=== PATIENT | female | born 1995 | race Caucasian/White ===

== ENCOUNTER 2017-10-23 11:18 | Emergency (ER) | payer SELFPAY ==
[2016-08-23 10:56] VITALS: Wt 127.0 kg
[~2017-10-23 11:18] MED LIST: ACET-1966 PO; AMOX-362 PO; FERR-53 PO; HYDR-4309 PO; IBUP800T37 PO; LOR5/325 PO; ONDA4TAB97 PO; PER PO; PREN-127 PO; PROM-110 PO
--- NOTE | 2017-10-23 11:26 | ER Report ---
History and Physical Time Seen By MD: 11:25 Hx. of Stated Complaint: pt reports cough, sore throat, chest pain for two days HPI/ROS CHIEF COMPLAINT: Chest pain HISTORY OF PRESENT ILLNESS: This is a 22-year-old female who presents to the emergency department for chest pain and cough. Patient states that about 4-5 days ago she developed a cough progressively getting worse over the course of the weekend and then over the last couple days she's had some increasing chest pain. Patient states the chest pain is exacerbated by her coughing. It's a semi- productive cough with yellow sputum in addition she's had a sore throat. Patient did state that yesterday she had some bright red flecks of blood but that has since then resolved. Patient also states she's been vomiting and has had diarrhea. Patient denies aches, chills, abdominal pain, headaches, rashes or visual changes. REVIEW OF SYSTEMS: Constitutional: No fever, no chills. Eyes: No discharge. ENT: No sore throat. Cardiovascular: As above. Respiratory: As above. Gastrointestinal: As above. Genitourinary: No hematuria. Musculoskeletal: No back pain. Skin: No rashes. Neurological: No headache. Allergies: Coded Allergies: No Known Drug Allergies (Unverified , 10/23/17) Home Meds Active Scripts Albuterol Sulfate (VENTOLIN HFA) 18 Gm Inh, 2 PUFF INH Q4-6H Y for SHORTNESS OF BREATH, #1 INH Prov:JOHAN POWERS [facility]- 10/23/17 Benzonatate (BENZONATATE) 200 Mg Capsule, 200 MG PO TID Y for COUGH, #15 CAP Prov:JOHAN POWERS [facility] 10/23/17 Amoxicillin (AMOXICILLIN) 500 Mg Capsule, 1 CAP PO Q12H for 10 Days, #20 CAPSULE 0 Refills Prov:JOHAN POWERS [facility] 10/23/17 Discontinued Reported Medications Vits W-Ca,Fe,Fa(<1MG) ( VITAMINS) 1 Each Tablet, 1 EACH PO DAILY, TAB 01/01/16 Discontinued Scripts Ferrous Sulfate (FERROUS SULFATE) 325 Mg Tablet, 325 MG PO BIDBS, #60 TAB 0 Refills Prov:MARKEL SEGAL DO 08/21/16 Oxycodone/Acetaminophen (OXYCODONE/ACETAMINOPHEN 5MG/325 MG) 5 Mg/325 Mg Tab, 1- 2 TAB PO Q4H Y for PAIN, #40 TAB 0 Refills Prov:MARKEL SEGAL DO 08/21/16 Ibuprofen (IBUPROFEN) 800 Mg Tablet, 800 MG PO Q8H@00,08,16, #20 TAB 0 Refills Prov:MARKEL SEGAL DO 08/21/16 Hydrocodone Bit/Acetaminophen (HYDROCODON-ACETAMINOPHEN 5-325) 1 Each Tablet, 1 EACH PO Q4H Y for PAIN, #12 TAB 0 Refills Prov:SAMANTA HAY MD 08/16/16 Past Medical/Surgical History Patient has a past medical and surgical history of depression, and obesity. Reviewed Nurses Notes: Yes Hx Smoking: Yes (Pt hasn't smoked for one year) Smoking Status: Former Smoker Exposure to Second Hand Smoke?: Yes (Occassionally) Hx Substance Use Disorder: No Hx Alcohol Use: Yes (occasional) Constitutional Vital Sign - Last 24 Hours 10/23/17 10/23/17 10/23/17 10/23/17 11:22 11:23 11:42 11:42 Temp 97.8 Pulse 91 80 Resp 16 16 B/P (MAP) 133/107 (116) 133/107 Pulse Ox 97 96 O2 Delivery Room Air Room Air 10/23/17 10/23/17 10/23/17 10/23/17 11:48 11:49 12:08 12:31 Pulse 96 90 76 74 Resp 32 B/P (MAP) 123/86 (98) Pulse Ox 100 98 Physical Exam General Appearance: The patient is alert, has no immediate need for airway protection and no signs of toxicity. Eyes: Pupils equal and round no pallor or injection. ENT, Mouth: Mucous membranes are moist. Erythema to the posterior orophyrnx and soft palate. Erythema and edema to the inferior turbinates with clear nasal drainage. TMs intact bilaterally, left TM pearly bergman, landmarks noted. Right TM bulging with erythema surrounding the TM and moderate amount of injection. Respiratory: There are no retractions, coarse lung sounds to the left mid lung, otherwise clear to auscultation. Cardiovascular: Regular rate and rhythm, no murmurs, clicks or rubs. Gastrointestinal: Abdomen is soft and non tender, no masses, bowel sounds normal. Neurological: Alert and oriented 4. Moving all extremities. No focal neuro deficits. Following all commands. Skin: Warm and dry, no rashes. Musculoskeletal: Neck is supple non tender. Extremities are nontender, nonswollen and have full range of motion. DIFFERENTIAL DIAGNOSIS: After history and physical exam differential diagnosis was considered for chest pain including but not limited to myocardial ischemia, pericarditis pulmonary embolus, chest wall pain, pleural inflammation and pulmonary infectious causes. Medical Decision Making Data Points Result Diagram: 10/23/17 1129 10/23/17 1129 Laboratory Hematology Test 10/23/17 11:29 Red Blood Count 5.63 M/uL (4.17-5.56) Mean Corpuscular Volume 77.0 fL (80.0-96.0) Mean Corpuscular Hemoglobin 26.1 pg (26.0-33.0) Mean Corpuscular Hemoglobin Concent 33.9 g/dL (32.0-36.0) Red Cell Distribution Width 16.9 % (11.5-14.5) Mean Platelet Volume 9.0 fL (7.2-11.1) Neutrophils (%) (Auto) 55.2 % (39.4-72.5) Lymphocytes (%) (Auto) 31.7 % (17.6-49.6) Monocytes (%) (Auto) 9.0 % (4.1-12.4) Eosinophils (%) (Auto) 3.5 % (0.4-6.7) Basophils (%) (Auto) 0.6 % (0.3-1.4) Nucleated RBC Relative Count (auto) 0.1 /100WBC Neutrophils # (Auto) 4.4 K/uL (2.0-7.4) Lymphocytes # (Auto) 2.5 K/uL (1.3-3.6) Monocytes # (Auto) 0.7 K/uL (0.3-1.0) Eosinophils # (Auto) 0.3 K/uL (0.0-0.5) Basophils # (Auto) 0.1 K/uL (0.0-0.1) Nucleated RBC Absolute Count (auto) 0.01 K/uL Sodium Level 140 mmol/L (137-145) Potassium Level 3.8 mmol/L (3.5-5.0) Chloride Level 104 mmol/L (98-107) Carbon Dioxide Level 20 mmol/L (22-31) Blood Urea Nitrogen 8 mg/dl (7-18) Creatinine 0.70 mg/dl (0.52-1.04) Glomerular Filtration Rate Calc > 60.0 Random Glucose 125 mg/dl (75-110) Calcium Level 8.9 mg/dl (8.4-10.2) Total Bilirubin 0.2 mg/dl (0.2-1.3) Aspartate Amino Transf (AST/SGOT) 30 U/L (0-35) Alanine Aminotransferase (ALT/SGPT) 26 U/L (0-56) Alkaline Phosphatase 99 U/L (0-126) Troponin I < 0.012 ng/ml Total Protein 7.3 gm/dl (6.3-8.2) Albumin 4.0 g/dl (3.5-5.0) Chemistry Test 10/23/17 11:29 White Blood Count 8.0 k/uL (4.5-11.0) Red Blood Count 5.63 M/uL (4.17-5.56) Hemoglobin 14.7 g/dL (12.0-16.0) Hematocrit 43.4 % (34.0-47.0) Mean Corpuscular Volume 77.0 fL (80.0-96.0) Mean Corpuscular Hemoglobin 26.1 pg (26.0-33.0) Mean Corpuscular Hemoglobin Concent 33.9 g/dL (32.0-36.0) Red Cell Distribution Width 16.9 % (11.5-14.5) Platelet Count 256 K/uL (150-450) Mean Platelet Volume 9.0 fL (7.2-11.1) Neutrophils (%) (Auto) 55.2 % (39.4-72.5) Lymphocytes (%) (Auto) 31.7 % (17.6-49.6) Monocytes (%) (Auto) 9.0 % (4.1-12.4) Eosinophils (%) (Auto) 3.5 % (0.4-6.7) Basophils (%) (Auto) 0.6 % (0.3-1.4) Nucleated RBC Relative Count (auto) 0.1 /100WBC Neutrophils # (Auto) 4.4 K/uL (2.0-7.4) Lymphocytes # (Auto) 2.5 K/uL (1.3-3.6) Monocytes # (Auto) 0.7 K/uL (0.3-1.0) Eosinophils # (Auto) 0.3 K/uL (0.0-0.5) Basophils # (Auto) 0.1 K/uL (0.0-0.1) Nucleated RBC Absolute Count (auto) 0.01 K/uL Glomerular Filtration Rate Calc > 60.0 Calcium Level 8.9 mg/dl (8.4-10.2) Total Bilirubin 0.2 mg/dl (0.2-1.3) Aspartate Amino Transf (AST/SGOT) 30 U/L (0-35) Alanine Aminotransferase (ALT/SGPT) 26 U/L (0-56) Alkaline Phosphatase 99 U/L (0-126) Troponin I < 0.012 ng/ml Total Protein 7.3 gm/dl (6.3-8.2) Albumin 4.0 g/dl (3.5-5.0) EKG/Imaging EKG Interpretation 12 lead EKG: time of EKG 1119. Rhythm: Normal sinus rhythm, ventricular rate 91 bpm. Olga: normal QRS: normal ST segments: No ST elevation or depression identified. Imaging Location: [facility] Patient: Marika Javed : 1995 Visit/Account:[id number] Date of [facility]: 10/23/2017 Examination: CHEST PA AND LAT Comparison: None. History: chest pain Findings: Cardiac and hilar contour size is within normal limits. No consolidation, nodule, or peribronchial inflammation. No pneumothorax, edema, or effusion. Cardiac and hilar contour size is within normal limits. Osseous structures are intact. IMPRESSION: Negative chest. Report Dictated By: Inder Alfaro MD at 10/23/2017 12:21 PM Report E-Signed By: Inder Alfaro MD at 10/23/2017 12:22 PM WSN:[id number] ED Course/Re-evaluation Clinical Indication for ER IV: IV Access ED Course The patient was admitted to room. A history and physical were obtained. Differential diagnoses were considered. An IV was started. A CBC, CMP, troponin were obtained. Lab studies unremarkable. Negative troponin. EKG unremarkable. Two-view chest x-ray negative for any acute cardiopulmonary process. Patient did have a right otitis media which she will be treated for. Patient did state that after the DuoNeb her coughing improved. Patient was also given 1 g of Tylenol and 15 mg IV Toradol. Patient states that she is feeling much better and is ready to go home. I did review these results with the patient. A Ventolin inhaler, Ventolin Apatate and amoxicillin prescription for worsening of the patient's pharmacy. Patient was encouraged to follow up with her primary care provider for persistent coughing. Patient was also encouraged her to the ED for any other concerns worsening symptoms. Patient was in agreement with this plan of care. Decision to Disposition Date: Oct 23, 2017 Decision to Disposition Time: 12:29 Depart Departure Latest Vital Signs Vital Signs Date Time Temp Pulse Resp B/P (MAP) Pulse Ox O2 Delivery O2 Flow Rate FiO2 10/23/17 12:31 74 123/86 (98) 98 10/23/17 11:48 32 10/23/17 11:42 Room Air 10/23/17 11:23 97.8 Impression: Primary Impression: Right otitis media Additional Impression: Cough Condition: Improved Disposition: HOME OR SELF-CARE Referrals: GHANSHYAM PABLO MD (PCP) New Scripts Albuterol Sulfate (VENTOLIN HFA) 18 Gm Inh 2 PUFF INH Q4-6H Y for SHORTNESS OF BREATH, #1 INH Prov: JOHAN POWERS [facility] 10/23/17 Benzonatate (BENZONATATE) 200 Mg Capsule 200 MG PO TID Y for COUGH, #15 CAP Prov: JOHAN POWERS [facility] 10/23/17 Amoxicillin (AMOXICILLIN) 500 Mg Capsule 1 CAP PO Q12H for 10 Days, #20 CAPSULE 0 Refills Prov: JOHAN POWERS [facility] 10/23/17 Patient Instructions: Acute Cough (ED), Otitis Media (ED) Additional Instructions: Drink plenty of fluids. Get plenty of rest. Continue with current medications. Take the antibiotics as prescribed for your ear infection. Follow up with your primary care provider as needed or for any other concerns. Return to the ED for any other concerns or worsening symptoms. Problem Qualifiers Primary Impression: Right otitis media Otitis media type: other nonsuppurative Chronicity: acute Recurrence: not specified as recurrent Qualified Codes: H65.191 - Other acute nonsuppurative otitis media, right ear JOHAN POWERS- Oct 23, 2017 11:26
[2017-10-23] MEDS ORDERED: ALBUTEROL/IPRATROPIUM 3 ML NEB NEB ONE (11:35)
[2017-10-23] MEDS ORDERED: ONDANSETRON 4 MG/2 ML VIAL IVP ONE (11:35)
[2017-10-23] MEDS ORDERED: ACETAMINOPHEN 500 MG TAB PO ONE (11:35)
[2017-10-23 11:44] LABS: PLATELET COUNT, AUTOMATED 256 K/uL (150-450)
[2017-10-23] MEDS ORDERED: AMOX-362 PO (11:55)
--- NOTE | 2017-10-23 11:55 | EKG ---
FACILITY: [facility] - [place] PATIENT NAME: CLAUDE NICK : [id number] MR: [id number] V: [id number] EXAM DATE: ORDERING PHYSICIAN: JOHAN POWERS TECHNOLOGIST: LIZBETH Mi Reason : CP Blood Pressure : / mmHG Vent. Rate : 091 BPM Atrial Rate : 091 BPM P-R Int : 126 ms QRS Dur : 072 ms QT Int : 360 ms P-R-T Axes : 031 048 026 degrees QTc Int : 442 ms Sinus rhythm Nonspecific ST findings No previous ECGs available Confirmed by GILBERTO QUIROZ ([id number]) on 10/23/2017 5:27:41 PM Referred By: CEE Confirmed By:GILBERTO QUIROZ
[2017-10-23] MEDS ORDERED: BENZ200C15 PO (12:17)
[2017-10-23] MEDS ORDERED: ALB18R INH (12:17)
[2017-10-23] MEDS ORDERED: KETOROLAC 15 MG/ML VIAL IVP ONE (12:20)
--- NOTE | 2017-10-23 12:27 | RADIOLOGY IMAGING REPORT ---
FACILITY: [facility] - [place] PATIENT NAME: Marika Javed : 1995 MR: [id number] V: [id number] EXAM DATE: ORDERING PHYSICIAN: JOHAN POWERS TECHNOLOGIST: Location: [facility] Patient: Marika Javed : 1995 Visit/Account:[id number] Date of [place]: 10/23/2017 Examination: CHEST PA AND LAT Comparison: None. History: chest pain Findings: Cardiac and hilar contour size is within normal limits. No consolidation, nodule, or peribr onchial inflammation. No pneumothorax, edema, or effusion. Cardiac and hilar contour size is within n ormal limits. Osseous structures are intact. IMPRESSION: Negative chest. Report Dictated By: Inder Alfaro MD at 10/23/2017 12:21 PM Report E-Signed By: Inder Alfaro MD at 10/23/2017 12:22 PM WSN:[id number]
[2017-10-23 12:31] VITALS: BP 123/86
== END 2017-10-23 12:33 | disposition home or self-care (01) ==
LOC: ER 11:22
DX: H65.191 Other acute nonsuppurative otitis media, right ear (principal); R05 Cough
CPT/HCPCS: 71046; 84484; 85025; 93005; 94640; 96374; 96375; 99284; J1885; J2405; J7620; 82040; 82247; 82310; 82374; 82435; 82565; 82947; 84075; 84132; 84155; 84295; 84450; 84460; 84520

== ENCOUNTER 2017-11-29 10:11 | Emergency (ER) | payer SELFPAY ==
[2016-08-23 10:56] VITALS: Wt 117.9 kg
[~2017-11-29 10:11] MED LIST changes: +ALB18R INH; +BENZ200C15 PO
--- NOTE | 2017-11-29 10:39 | ER Report ---
History and Physical Time Seen By MD: 10:39 Hx. of Stated Complaint: PATIENT HAS ALLERGY TO MOLD AND WAS CLEANING THIS WEEKEND AND BELIEVES SHE HAD AN ALLERGIC REACTION TO THAT, HAS NOTICED THAT SINCE HER THROAT IS SWOLLEN AND SHE IS VERY CONGESTED. STATES SHE FEELS LIKE HER "UVULA IS ON HER TOUNGE" HPI/ROS Was exposed to mold this past weekend in her hotel room. Now with discomfort and "fullness" in throat. Feels like her uvula is enlarged. No dysphagia. No fever/chills. Nomal voice. Taking PO. No other complaints Remainder of the 14 system rev: Yes Allergies: Coded Allergies: No Known Drug Allergies (Unverified , 11/29/17) Home Meds Discontinued Scripts Albuterol Sulfate (VENTOLIN HFA) 18 Gm Inh, 2 PUFF INH Q4-6H Y for SHORTNESS OF BREATH, #1 INH Prov:JOHAN POWERS [facility]- 10/23/17 Benzonatate (BENZONATATE) 200 Mg Capsule, 200 MG PO TID Y for COUGH, #15 CAP Prov:JOHAN POWERS [facility] 10/23/17 Amoxicillin (AMOXICILLIN) 500 Mg Capsule, 1 CAP PO Q12H for 10 Days, #20 CAPSULE 0 Refills Prov:JOHAN POWERS [facility]- 10/23/17 Reviewed Nurses Notes: Yes Old Medical Records Reviewed: Yes Hx Smoking: Yes (Pt hasn't smoked for one year) Smoking Status: Former Smoker Exposure to Second Hand Smoke?: Yes (Occassionally) Hx Substance Use Disorder: No Hx Alcohol Use: Yes (occasional) Constitutional Vital Sign - Last 24 Hours 11/29/17 10:16 Temp 96.6 Pulse 94 Resp 16 B/P (MAP) 145/102 Pulse Ox 95 Physical Exam General Appearance: The patient is alert, has no immediate need for airway protection and no current signs of toxicity. Eyes: Pupils equal and round no injection. o/p no exudate, no swelling, Uvula midline, no pain with tracheal rock, normal voice Respiratory: Chest is non tender, lungs are clear to auscultation. Cardiac: regular rate and rhythm Gastrointestinal: Abdomen is soft and non tender, no masses, bowel sounds normal. Musculoskeletal: Neck: Neck is supple and non tender. Extremities have full range of motion and are non tender. Skin: No rashes or lesions. DIFFERENTIAL DIAGNOSIS: After history and physical exam differential diagnosis was considered for RPA, COATINGS INSPECTOR, allergic reaction, infection, mass Medical Decision Making ED Course/Re-evaluation ED Course Patient presents with fullness in her uvula after being exposed to mold the weekend. No shortness of breath no dysphasia. No changes in voice. No fever or chills. She was given Decadron for some mild fullness in her uvula. She was also given ibuprofen for some mild discomfort. No evidence of infection. She is able to take by mouth. She will follow-up with her primary care Decision to Disposition Date: November 29, 2017 Decision to Disposition Time: 11:36 Depart Departure Latest Vital Signs Vital Signs Date Time Temp Pulse Resp B/P (MAP) Pulse Ox O2 Delivery O2 Flow Rate FiO2 11/29/17 10:16 96.6 94 16 145/102 95 Impression: Primary Impression: Uvulitis Condition: Improved Disposition: HOME OR SELF-CARE Referrals: GHANSHYAM PABLO MD (PCP) New Scripts No Active Prescriptions or Reported Meds Patient Instructions: Uvulitis (ED) LORNA PRINCE MD November 29, 2017 10:39
[2017-11-29] MEDS ORDERED: IBUPROFEN 600 MG TAB PO ONE (10:50)
[2017-11-29] MEDS ORDERED: DEXAMETHASONE 1 MG TAB PO ONE (10:50)
[2017-11-29] MEDS ORDERED: DEXAMETHASONE PO ONE (11:20)
[2017-11-29 11:49] VITALS: BP 108/88
== END 2017-11-29 11:49 | disposition home or self-care (01) ==
LOC: ER 10:12
DX: K12.2 Cellulitis and abscess of mouth (principal)
CPT/HCPCS: 99283; J8540

== ENCOUNTER 2018-09-25 10:09 | Emergency (ER) | payer SELFPAY ==
[2016-08-23 10:56] VITALS: Wt 126.1 kg
[~2018-09-25 10:09] MED LIST changes: -HYDR-4309 PO; +HYDR-653 PO
[2018-09-25] MEDS ORDERED: DAYQUIL (10:24)
--- NOTE | 2018-09-25 10:35 | ER Report ---
History and Physical Time Seen By MD: 10:20 Hx. of Stated Complaint: MID CHEST PAIN AND DIFFICULTY BREATHING X2 DAYS, UNABLE TO EAT DUE TO VOMITING FROM COUGHING HARD, MUCUS DISCHARGE AND BLOODY DISCHARGE FROM NOSE. PAIN WORSE WITH DEEP BREATHING AND RADIATING TO R UPPER SIDE HPI/ROS CHIEF COMPLAINT: Cough shortness of breath HISTORY OF PRESENT ILLNESS: 23-year-old otherwise healthy obese female comes in the emergency department today with a complaint of several days of shortness of breath productive cough of dark greenish sputum as chest pain associated promote the cough worsened she lays flat no orthopnea no PND no exertional dyspnea patient has no history of respiratory issues she is an occasional smoker. P atient denies any recent travel falls or trauma has no history of DVTs or blood clots. Patient has no abdominal pain nausea vomiting diarrhea fever chills or additional complaints noted REVIEW OF SYSTEMS: Respiratory: Cough shortness of breath Cardiovascular: Chest pain no palpitations Gastrointestinal: No vomiting, no abdominal pain. Musculoskeletal: No back pain. Remainder of the 14 system rev: Yes Allergies: Coded Allergies: No Known Drug Allergies (Unverified , 11/29/17) Home Meds Reported Medications [Dayquil] No Conflict Check 09/25/18 Reviewed Nurses Notes: Yes Old Medical Records Reviewed: Yes Hx Smoking: Yes (Pt hasn't smoked for one year) Smoking Status: Former Smoker Exposure to Second Hand Smoke?: Yes (Occassionally) Hx Substance Use Disorder: No Hx Alcohol Use: Yes (occasional) Constitutional Vital Sign - Last 24 Hours 09/25/18 10:15 Temp 98.4 Pulse 120 Resp 22 B/P (MAP) 128/92 Pulse Ox 93 O2 Delivery Room Air Physical Exam General Appearance: [The patient is alert, has no immediate need for airway protection and no current signs of toxicity.] [ ] Eyes: Pupils equal and round no injection. Respiratory: Chest is non tender, lungs are clear to auscultation. Cardiac: regular rate and rhythm [ ] Gastrointestinal: Abdomen is soft and non tender, no masses, bowel sounds normal. Musculoskeletal: Neck: Neck is supple and non tender. Extremities have full range of motion and are non tender. Skin: No rashes or lesions. [ ] DIFFERENTIAL DIAGNOSIS: After history and physical exam differential diagnosis was considered for pneumonia bronchitis influenza blood clot Medical Decision Making Data Points Result Diagram: 09/25/18 1034 09/25/18 1034 Laboratory Hematology Test 09/25/18 10:34 09/25/18 11:16 Red Blood Count 5.48 M/uL (4.17-5.56) Mean Corpuscular Volume 82.3 fL (80.0-96.0) Mean Corpuscular Hemoglobin 27.6 pg (26.0-33.0) Mean Corpuscular Hemoglobin Concent 33.5 g/dL (32.0-36.0) Red Cell Distribution Width 14.7 % (11.5-14.5) Mean Platelet Volume 8.8 fL (7.2-11.1) Neutrophils (%) (Auto) 81.4 % (39.4-72.5) Lymphocytes (%) (Auto) 11.9 % (17.6-49.6) Monocytes (%) (Auto) 6.0 % (4.1-12.4) Eosinophils (%) (Auto) 0.4 % (0.4-6.7) Basophils (%) (Auto) 0.3 % (0.3-1.4) Nucleated RBC Relative Count (auto) 0.0 /100WBC Neutrophils # (Auto) 13.2 K/uL (2.0-7.4) Lymphocytes # (Auto) 1.9 K/uL (1.3-3.6) Monocytes # (Auto) 1.0 K/uL (0.3-1.0) Eosinophils # (Auto) 0.1 K/uL (0.0-0.5) Basophils # (Auto) 0.0 K/uL (0.0-0.1) Nucleated RBC Absolute Count (auto) 0.00 K/uL D-Dimer Quantitative (PE/DVT) 0.32 ug/ml (0-0.50) Urine HCG, Qualitative Negative (NEGATIVE) Sodium Level 138 mmol/L (137-145) Potassium Level 3.7 mmol/L (3.5-5.0) Chloride Level 105 mmol/L (98-107) Carbon Dioxide Level 23 mmol/L (22-31) Blood Urea Nitrogen 8 mg/dl (7-18) Creatinine 0.80 mg/dl (0.52-1.04) Glomerular Filtration Rate Calc > 60.0 Random Glucose 118 mg/dl (75-110) Calcium Level 9.0 mg/dl (8.4-10.2) Total Bilirubin 0.8 mg/dl (0.2-1.3) Aspartate Amino Transf (AST/SGOT) 19 U/L (0-35) Alanine Aminotransferase (ALT/SGPT) 21 U/L (0-56) Alkaline Phosphatase 94 U/L (0-126) Troponin I < 0.012 ng/ml B-Type Natriuretic Peptide 5 pg/ml (0-100) Total Protein 7.7 g/dl (6.3-8.2) Albumin 4.4 g/dl (3.5-5.0) Influenza Virus Type A (PCR) Negative (NEGATIVE) Influenza Virus Type B (PCR) Negative (NEGATIVE) Urine Color Yellow Urine Clarity Slightly-cloudy Urine pH 5.0 pH (4.8-9.5) Urine Specific Lyons 1.026 Urine Protein Negative mg/dL (NEGATIVE) Urine Glucose (UA) Negative mg/dL (NEGATIVE) Urine Ketones Negative mg/dL (NEGATIVE) Urine Blood Negative (NEGATIVE) Urine Nitrite Negative (NEGATIVE) Urine Bilirubin Negative (NEGATIVE) Urine Urobilinogen 4.0 mg/dL (0.2-1.9) Urine Leukocyte Esterase Negative (NEGATIVE) Urine RBC None /HPF (0-2/HPF) Urine WBC 8 /HPF (0-5/HPF) Urine Squamous Epithelial Cells Many /LPF (</=FEW) Urine Bacteria Few /HPF (NONE-FEW) Urine Mucus Few /HPF (NONE-FEW) Chemistry Test 09/25/18 10:34 09/25/18 11:16 White Blood Count 16.3 k/uL (4.5-11.0) Red Blood Count 5.48 M/uL (4.17-5.56) Hemoglobin 15.1 g/dL (12.0-16.0) Hematocrit 45.1 % (34.0-47.0) Mean Corpuscular Volume 82.3 fL (80.0-96.0) Mean Corpuscular Hemoglobin 27.6 pg (26.0-33.0) Mean Corpuscular Hemoglobin Concent 33.5 g/dL (32.0-36.0) Red Cell Distribution Width 14.7 % (11.5-14.5) Platelet Count 281 K/uL (150-450) Mean Platelet Volume 8.8 fL (7.2-11.1) Neutrophils (%) (Auto) 81.4 % (39.4-72.5) Lymphocytes (%) (Auto) 11.9 % (17.6-49.6) Monocytes (%) (Auto) 6.0 % (4.1-12.4) Eosinophils (%) (Auto) 0.4 % (0.4-6.7) Basophils (%) (Auto) 0.3 % (0.3-1.4) Nucleated RBC Relative Count (auto) 0.0 /100WBC Neutrophils # (Auto) 13.2 K/uL (2.0-7.4) Lymphocytes # (Auto) 1.9 K/uL (1.3-3.6) Monocytes # (Auto) 1.0 K/uL (0.3-1.0) Eosinophils # (Auto) 0.1 K/uL (0.0-0.5) Basophils # (Auto) 0.0 K/uL (0.0-0.1) Nucleated RBC Absolute Count (auto) 0.00 K/uL D-Dimer Quantitative (PE/DVT) 0.32 ug/ml (0-0.50) Urine HCG, Qualitative Negative (NEGATIVE) Glomerular Filtration Rate Calc > 60.0 Calcium Level 9.0 mg/dl (8.4-10.2) Total Bilirubin 0.8 mg/dl (0.2-1.3) Aspartate Amino Transf (AST/SGOT) 19 U/L (0-35) Alanine Aminotransferase (ALT/SGPT) 21 U/L (0-56) Alkaline Phosphatase 94 U/L (0-126) Troponin I < 0.012 ng/ml B-Type Natriuretic Peptide 5 pg/ml (0-100) Total Protein 7.7 g/dl (6.3-8.2) Albumin 4.4 g/dl (3.5-5.0) Influenza Virus Type A (PCR) Negative (NEGATIVE) Influenza Virus Type B (PCR) Negative (NEGATIVE) Urine Color Yellow Urine Clarity Slightly-cloudy Urine pH 5.0 pH (4.8-9.5) Urine Specific Lyons 1.026 Urine Protein Negative mg/dL (NEGATIVE) Urine Glucose (UA) Negative mg/dL (NEGATIVE) Urine Ketones Negative mg/dL (NEGATIVE) Urine Blood Negative (NEGATIVE) Urine Nitrite Negative (NEGATIVE) Urine Bilirubin Negative (NEGATIVE) Urine Urobilinogen 4.0 mg/dL (0.2-1.9) Urine Leukocyte Esterase Negative (NEGATIVE) Urine RBC None /HPF (0-2/HPF) Urine WBC 8 /HPF (0-5/HPF) Urine Squamous Epithelial Cells Many /LPF (</=FEW) Urine Bacteria Few /HPF (NONE-FEW) Urine Mucus Few /HPF (NONE-FEW) Coagulation Test 09/25/18 10:34 D-Dimer Quantitative (PE/DVT) 0.32 ug/ml Urinalysis Test 09/25/18 10:34 09/25/18 11:16 Urine HCG, Qualitative Negative (NEGATIVE) Urine Color Yellow Urine Clarity Slightly-cloudy Urine pH 5.0 pH (4.8-9.5) Urine Specific Lyons 1.026 Urine Protein Negative mg/dL (NEGATIVE) Urine Glucose (UA) Negative mg/dL (NEGATIVE) Urine Ketones Negative mg/dL (NEGATIVE) Urine Blood Negative (NEGATIVE) Urine Nitrite Negative (NEGATIVE) Urine Bilirubin Negative (NEGATIVE) Urine Urobilinogen 4.0 mg/dL (0.2-1.9) Urine Leukocyte Esterase Negative (NEGATIVE) Urine RBC None /HPF (0-2/HPF) Urine WBC 8 /HPF (0-5/HPF) Urine Squamous Epithelial Cells Many /LPF (</=FEW) Urine Bacteria Few /HPF (NONE-FEW) Urine Mucus Few /HPF (NONE-FEW) ED Course/Re-evaluation ED Course 23-year-old female shortness of breath with a productive cough x-ray shows no obvious infection infiltration pneumonia or bronchitis blood work does show an elevated white count of 16 but no focal infiltrate this is most likely viral etiology influence is negative we'll diagnose viral upper respiratory treat the symptoms Decision to Disposition Date: Sep 25, 2018 Decision to Disposition Time: 11:36 Depart Departure Latest Vital Signs Vital Signs Date Time Temp Pulse Resp B/P (MAP) Pulse Ox O2 Delivery O2 Flow Rate FiO2 09/25/18 10:15 98.4 120 22 128/92 93 Room Air Core Temperature (Celsius): 35.89 Impression: Primary Impression: Viral upper respiratory illness Condition: Condition Unchanged Disposition: HOME OR SELF-CARE Referrals: JOSE MUSE APRN [facility] 5 Days Patient Instructions: Upper Respiratory Infection (DC) NICKY MITCHELL MD Sep 25, 2018 10:35
--- NOTE | 2018-09-25 10:37 | EKG ---
FACILITY: [facility] - [place], [place] PATIENT NAME: CLAUDE NICK : [id number] MR: [id number] V: [id number] EXAM DATE: ORDERING PHYSICIAN: NICKY MITCEHLL TECHNOLOGIST: Test Reason : SOB Blood Pressure : / mmHG Vent. Rate : 106 BPM Atrial Rate : 106 BPM P-R Int : 130 ms QRS Dur : 070 ms QT Int : 344 ms P-R-T Axes : 032 045 024 degrees QTc Int : 456 ms Sinus tachycardia Otherwise normal ECG When compared with ECG of 23-OCT-2017 11:19, Previous ECG has undetermined rhythm, needs review Confirmed by GHANSHYAM ESCALONA ([id number]) on 09/25/2018 12:48:46 PM Referred By: Confirmed By:GHANSHYAM ESCALONA
[2018-09-25 10:48] LABS: PLATELET COUNT, AUTOMATED 281 K/uL (150-450)
--- NOTE | 2018-09-25 10:59 | RADIOLOGY IMAGING REPORT ---
FACILITY: [facility] - [place] PATIENT NAME: Marika Javed : 1995 MR: [id number] V: [id number] EXAM DATE: ORDERING PHYSICIAN: NICKY MITCHELL TECHNOLOGIST: [place] [facility] [place] Javed : 1995 Visit/Account:[id number] Date of Sevice: 09/25/2018 Technique: CHEST PA LAT HISTORY: Shortness of breath, tobacco usage COMPARISON: Chest radiograph 2017 Findings: The lungs are clear. No pleural effusion or pneumothorax. The cardiomediastinal silhouett e is normal. Impression: 1. No acute cardiopulmonary process. Report Dictated By: Tj Jones DO at 09/25/2018 10:52 AM Report E-Signed By: Tj Jones DO at 09/25/2018 10:55 AM WSN:[id number]
[2018-09-25 11:41] VITALS: BP 124/80
== END 2018-09-25 11:52 | disposition home or self-care (01) ==
LOC: ER 10:15
DX: J06.9 Acute upper respiratory infection, unspecified (principal)
CPT/HCPCS: 71046; 81001; 81025; 82040; 82247; 82310; 82374; 82435; 82565; 82947; 83880; 84075; 84132; 84155; 84295; 84450; 84460; 84484; 84520; 85025; 85379; 87502; 93005; 99284

== ENCOUNTER 2019-01-17 08:06 | Emergency (ER) | payer SELFPAY ==
[2016-08-23 10:56] VITALS: Wt 124.7 kg
[~2019-01-17 08:06] MED LIST changes: +DAYQUIL
[2019-01-17 08:11] VITALS: BP 123/85
--- NOTE | 2019-01-17 08:14 | ER Report ---
History and Physical Time Seen By MD: 08:11 HPI/ROS CHIEF COMPLAINT: Left ankle and foot pain HISTORY OF PRESENT ILLNESS: 23-year-old female comes emergency Department after rolling her foot stepping downstairs yesterday in the late afternoon or early evening has pain to the lateral aspect of her ankle bone and her dorsum and lateral aspect of her left foot noted neck trauma no additional complaints noted pain is with regulation she is able to walk with scissors discomfort when she does ambulate REVIEW OF SYSTEMS: Respiratory: No cough, no dyspnea. Cardiovascular: No chest pain, no palpitations. Gastrointestinal: No vomiting, no abdominal pain. Musculoskeletal: Left ankle and foot pain Remainder of the 14 system rev: Yes Allergies: Coded Allergies: No Known Drug Allergies (Unverified , 11/29/17) Home Meds Reported Medications [Dayquil] No Conflict Check 09/25/18 Reviewed Nurses Notes: Yes Old Medical Records Reviewed: Yes Hx Smoking: Yes (Pt hasn't smoked for one year) Smoking Status: Former Smoker Exposure to Second Hand Smoke?: Yes (Occassionally) Hx Substance Use Disorder: No Hx Alcohol Use: Yes (occasional) Constitutional Vital Sign - Last 24 Hours 01/17/19 08:11 Temp 98.4 Pulse 104 Resp 16 B/P (MAP) 123/85 Pulse Ox 93 O2 Delivery Room Air Physical Exam General appearance: Alert no distress. Respiratory: Chest is non tender, lungs are clear to auscultation. Cardiac: Regular rate and rhythm [ ] Left foot ankle examination patient's left foot and ankle demonstrates pain and tenderness to palpation at the base of the 5th metatarsal also pain in with palpation of the lateral malleolus neurovascular intact otherwise unremarkable rambling with 3 steps DIFFERENTIAL DIAGNOSIS: After history and physical exam differential diagnosis was considered for ankle sprain foot sprain versus fracture Medical Decision Making ED Course/Re-evaluation ED Course ED course medical decision making this is a 23 female who rolled her ankle yesterday has pain to the lateral aspect x-rays of the foot and ankle negative for fractures dislocation subluxation is able to ambulate with some discomfort open Carroll wrap crutches if needed rest ice compress elevate follow up with primary care Decision to Disposition Date: Jan 17, 2019 Decision to Disposition Time: 08:46 Depart Departure Latest Vital Signs Vital Signs Date Time Temp Pulse Resp B/P (MAP) Pulse Ox O2 Delivery O2 Flow Rate FiO2 01/17/19 08:11 98.4 104 16 123/85 93 Room Air Core Temperature (Celsius): 35.89 Impression: Primary Impression: Ankle sprain Condition: Improved Disposition: HOME OR SELF-CARE Referrals: LIVE MURPHY MD (PCP) 10 Days Patient Instructions: Ankle Sprain (DC) Additional Instructions: Rest ice compress elevate wear carroll wrap ice 3-4 times a day use crutches if necessary ambulate as tolerated NICKY MITCHELL MD Jan 17, 2019 08:14
--- NOTE | 2019-01-17 08:41 | RADIOLOGY IMAGING REPORT ---
FACILITY: [facility] PATIENT NAME: Marika Javed : 1995 MR: [id number] V: [id number] EXAM DATE: ORDERING PHYSICIAN: NICKY MITCHELL TECHNOLOGIST: [place] [facility] [place] Javed : 1995 Visit/Account:[id number] Date of Sevice: 01/17/2019 Exam type: ANKLE 3 VIEW MIN LEFT History: Twisted foot/ankle yesterday, painful Comparison: None. Findings: There is mild soft tissue swelling about the left ankle. Positioning is somewhat limited although no gross evidence of acute fracture or dislocation. No significant arthritic change identified IMPRESSION: 1. Mild soft tissue spine about the left ankle No gross evidence of acute fracture or dislocation Report Dictated By: Harriet Phillips MD at 01/17/2019 8:33 AM Report E-Signed By: Harriet Phillips MD at 01/17/2019 8:35 AM WSN:[email or web address]
--- NOTE | 2019-01-17 08:42 | RADIOLOGY IMAGING REPORT ---
FAC[place] [facility] [place]IENT NAME: Marika Javed : 1995 MR: [id number] V: [id number] EXAM DATE: ORDERING PHYSICIAN: NICKY MITCHELL TECHNOLOGIST: Location: [facility] Patient: Mraika Javed : 1995 Visit/Account:[id number] Date of Sevice: 01/17/2019 Exam type: FOOT 3 VIEW LEFT History: Twisted foot/ankle yesterday with pain Comparison: Left ankle series performed today. Findings: There is no gross evidence of acute fracture-dislocation involving the left foot. No significant art hritic change seen. IMPRESSION: 1. No evidence of acute fracture-dislocation involving the left foot Report Dictated By: Harriet Phillips MD at 01/17/2019 8:35 AM Report E-Signed By: Harriet Phillips MD at 01/17/2019 8:36 AM WSN:[email or web address]
== END 2019-01-17 09:07 | disposition home or self-care (01) ==
LOC: ER 08:18
DX: S93.402A Sprain of unspecified ligament of left ankle, initial encounter (principal); X50.1XXA Overexertion from prolonged static or awkward postures, initial encounter; Z87.891 Personal history of nicotine dependence
CPT/HCPCS: 73610; 73630; 99284; L1930

== ENCOUNTER 2019-01-21 15:13 | Emergency (ER) | payer SELFPAY ==
[2016-08-23 10:56] VITALS: Wt 124.7 kg
[2019-01-21] MEDS ORDERED: NS(*) 0.9% 1000 ML BAG 1,000 ML IV ONE ×2 (15:29→15:38)
[2019-01-21] MEDS ORDERED: ONDANSETRON 4 MG/2 ML VIAL IVP ONE ×2 (15:30→15:40)
--- NOTE | 2019-01-21 15:34 | ER Report ---
History and Physical Time Seen By MD: 15:31 Hx. of Stated Complaint: PRESENTS WITH RLQ ABD PAIN, N/V X 24 HRS. HPI/ROS CHIEF COMPLAINT: Right lower quadrant abdominal pain HISTORY OF PRESENT ILLNESS: 23-year-old female patient presents to emergency room with complaint of right lower quadrant abdominal pain. Patient states that she has been having pain for the past couple of days. She states that she has worse pain with any type of activity. She states the pain is significant only worse when she hit bumps on the right in. She has had a low-grade fever, she states that she has been pale. She states she's had some episodes of nausea and vomiting. She states that she's not had much to eat or drink for the last couple days. She denies any history of abdominal surgery. Patient states she has taken some Tylenol for this with no improvement. REVIEW OF SYSTEMS: Respiratory: No cough, no dyspnea. Cardiovascular: No chest pain, no palpitations. Gastrointestinal: As noted above Musculoskeletal: No back pain. Allergies: Coded Allergies: No Known Drug Allergies (Unverified , 01/21/19) Home Meds Active Scripts Sulfamethoxazole/Trimet 800-160 Mg Tab (BACTRIM DS TABLET) 1 Each Tablet, 1 TAB PO Q12H, #14 TAB Prov:MINNIE GÓMEZ [facility] 01/21/19 Hydrocodone Bit/Acetaminophen (HYDROCODON-ACETAMINOPHEN 5-325) 1 Each Tablet, 1 EACH PO Q4-6H PRN for PAIN, #8 TAB Prov:MINNIE GÓMEZ [facility] 01/21/19 Reported Medications [Dayquil] No Conflict Check 09/25/18 Past Medical/Surgical History Patient has a past medical history of alcohol use, depression. Reviewed Nurses Notes: Yes Hx Smoking: Yes (Pt hasn't smoked for one year) Smoking Status: Former Smoker Exposure to Second Hand Smoke?: Yes (Occassionally) Hx Substance Use Disorder: No Hx Alcohol Use: Yes (occasional) Constitutional Vital Sign - Last 24 Hours 01/21/19 01/21/19 15:21 18:37 Temp 99.3 Pulse 108 64 Resp 18 18 B/P (MAP) 118/74 (89) Pulse Ox 95 96 O2 Delivery Room Air Room Air Physical Exam General Appearance: The patient is alert, has no immediate need for airway protection and no current signs of toxicity. Respiratory: Chest is non tender, lungs are clear to auscultation. Cardiac: regular rate and rhythm Gastrointestinal: Abdomen is soft and tender in the right lower quadrant, patient does have referred tenderness with palpation to the right upper and left lower quadrants, no masses, bowel sounds normal. Musculoskeletal: Neck: Neck is supple and non tender. Extremities have full range of motion and are non tender. Skin: No rashes or lesions. DIFFERENTIAL DIAGNOSIS: After history and physical exam differential diagnosis was considered for abdominal pain including but not limited to appendicitis, cholecystitis, gastritis and urinary tract infection. Medical Decision Making Data Points Result Diagram: 01/21/19 1500 01/21/19 1500 Laboratory Hematology Test 01/21/19 15:00 01/21/19 15:15 Red Blood Count 5.32 M/uL (4.17-5.56) Mean Corpuscular Volume 83.2 fL (80.0-96.0) Mean Corpuscular Hemoglobin 28.0 pg (26.0-33.0) Mean Corpuscular Hemoglobin Concent 33.7 g/dL (32.0-36.0) Red Cell Distribution Width 14.0 % (11.5-14.5) Mean Platelet Volume 9.1 fL (7.2-11.1) Neutrophils (%) (Auto) 76.5 % (39.4-72.5) Lymphocytes (%) (Auto) 15.1 % (17.6-49.6) Monocytes (%) (Auto) 7.0 % (4.1-12.4) Eosinophils (%) (Auto) 0.8 % (0.4-6.7) Basophils (%) (Auto) 0.6 % (0.3-1.4) Nucleated RBC Relative Count (auto) 0.0 /100WBC Neutrophils # (Auto) 10.4 K/uL (2.0-7.4) Lymphocytes # (Auto) 2.1 K/uL (1.3-3.6) Monocytes # (Auto) 0.9 K/uL (0.3-1.0) Eosinophils # (Auto) 0.1 K/uL (0.0-0.5) Basophils # (Auto) 0.1 K/uL (0.0-0.1) Nucleated RBC Absolute Count (auto) 0.01 K/uL Sodium Level 141 mmol/L (137-145) Potassium Level 3.7 mmol/L (3.5-5.0) Chloride Level 105 mmol/L (98-107) Carbon Dioxide Level 23 mmol/L (22-31) Blood Urea Nitrogen 11 mg/dl (7-18) Creatinine 1.10 mg/dl (0.52-1.04) Glomerular Filtration Rate Calc > 60.0 Random Glucose 116 mg/dl (75-110) Calcium Level 9.0 mg/dl (8.4-10.2) Total Bilirubin 0.7 mg/dl (0.2-1.3) Aspartate Amino Transf (AST/SGOT) 23 U/L (0-35) Alanine Aminotransferase (ALT/SGPT) 29 U/L (0-56) Alkaline Phosphatase 89 U/L (0-126) Total Protein 7.3 g/dl (6.3-8.2) Albumin 4.0 g/dl (3.5-5.0) Amylase Level 40 U/L (0-110) Lipase 42 U/L (23-300) Human Chorionic Gonadotropin, Qual Negative (NEGATIVE) Urine Color Yellow Urine Clarity Cloudy Urine pH 6.0 pH (4.8-9.5) Urine Specific [place] 1.005 Urine Protein 30 mg/dL (NEGATIVE) Urine Glucose (UA) Negative mg/dL (NEGATIVE) Urine Ketones Negative mg/dL (NEGATIVE) Urine Blood Moderate (NEGATIVE) Urine Nitrite Negative (NEGATIVE) Urine Bilirubin Negative (NEGATIVE) Urine Urobilinogen Negative mg/dL (0.2-1.9) Urine Leukocyte Esterase Large (NEGATIVE) Urine RBC 5 /HPF (0-2/HPF) Urine WBC 455 /HPF (0-5/HPF) Urine WBC Clumps Few /HPF Urine Squamous Epithelial Cells Few /LPF (</=FEW) Urine Bacteria Moderate /HPF (NONE-FEW) Urine Mucus None /HPF (NONE-FEW) Chemistry Test 01/21/19 15:00 01/21/19 15:15 White Blood Count 13.6 k/uL (4.5-11.0) Red Blood Count 5.32 M/uL (4.17-5.56) Hemoglobin 14.9 g/dL (12.0-16.0) Hematocrit 44.3 % (34.0-47.0) Mean Corpuscular Volume 83.2 fL (80.0-96.0) Mean Corpuscular Hemoglobin 28.0 pg (26.0-33.0) Mean Corpuscular Hemoglobin Concent 33.7 g/dL (32.0-36.0) Red Cell Distribution Width 14.0 % (11.5-14.5) Platelet Count 277 K/uL (150-450) Mean Platelet Volume 9.1 fL (7.2-11.1) Neutrophils (%) (Auto) 76.5 % (39.4-72.5) Lymphocytes (%) (Auto) 15.1 % (17.6-49.6) Monocytes (%) (Auto) 7.0 % (4.1-12.4) Eosinophils (%) (Auto) 0.8 % (0.4-6.7) Basophils (%) (Auto) 0.6 % (0.3-1.4) Nucleated RBC Relative Count (auto) 0.0 /100WBC Neutrophils # (Auto) 10.4 K/uL (2.0-7.4) Lymphocytes # (Auto) 2.1 K/uL (1.3-3.6) Monocytes # (Auto) 0.9 K/uL (0.3-1.0) Eosinophils # (Auto) 0.1 K/uL (0.0-0.5) Basophils # (Auto) 0.1 K/uL (0.0-0.1) Nucleated RBC Absolute Count (auto) 0.01 K/uL Glomerular Filtration Rate Calc > 60.0 Calcium Level 9.0 mg/dl (8.4-10.2) Total Bilirubin 0.7 mg/dl (0.2-1.3) Aspartate Amino Transf (AST/SGOT) 23 U/L (0-35) Alanine Aminotransferase (ALT/SGPT) 29 U/L (0-56) Alkaline Phosphatase 89 U/L (0-126) Total Protein 7.3 g/dl (6.3-8.2) Albumin 4.0 g/dl (3.5-5.0) Amylase Level 40 U/L (0-110) Lipase 42 U/L (23-300) Human Chorionic Gonadotropin, Qual Negative (NEGATIVE) Urine Color Yellow Urine Clarity Cloudy Urine pH 6.0 pH (4.8-9.5) Urine Specific [place] 1.005 Urine Protein 30 mg/dL (NEGATIVE) Urine Glucose (UA) Negative mg/dL (NEGATIVE) Urine Ketones Negative mg/dL (NEGATIVE) Urine Blood Moderate (NEGATIVE) Urine Nitrite Negative (NEGATIVE) Urine Bilirubin Negative (NEGATIVE) Urine Urobilinogen Negative mg/dL (0.2-1.9) Urine Leukocyte Esterase Large (NEGATIVE) Urine RBC 5 /HPF (0-2/HPF) Urine WBC 455 /HPF (0-5/HPF) Urine WBC Clumps Few /HPF Urine Squamous Epithelial Cells Few /LPF (</=FEW) Urine Bacteria Moderate /HPF (NONE-FEW) Urine Mucus None /HPF (NONE-FEW) Urinalysis Test 01/21/19 15:15 Urine Color Yellow Urine Clarity Cloudy Urine pH 6.0 pH (4.8-9.5) Urine Specific [place] 1.005 Urine Protein 30 mg/dL (NEGATIVE) Urine Glucose (UA) Negative mg/dL (NEGATIVE) Urine Ketones Negative mg/dL (NEGATIVE) Urine Blood Moderate (NEGATIVE) Urine Nitrite Negative (NEGATIVE) Urine Bilirubin Negative (NEGATIVE) Urine Urobilinogen Negative mg/dL (0.2-1.9) Urine Leukocyte Esterase Large (NEGATIVE) Urine RBC 5 /HPF (0-2/HPF) Urine WBC 455 /HPF (0-5/HPF) Urine WBC Clumps Few /HPF Urine Squamous Epithelial Cells Few /LPF (</=FEW) Urine Bacteria Moderate /HPF (NONE-FEW) Urine Mucus None /HPF (NONE-FEW) EKG/Imaging Imaging TRANSVAGINAL NON-OB HISTORY: Right lower quadrant pain, abnormal CT scan with a cystic tubular structure TECHNIQUE: Transvaginal ultrasound pelvis. Brannon scale, color and Duplex imaging was performed. COMPARISON: CT scan same day FINDINGS: Uterus: Anteverted; 6.4 cm length x 2.8 cm AP x 4.8 cm transverse. Myometrium: Unremarkable. Endometrium: Unremarkable; double thickness 4 mm. Cervix: Grossly negative. Ovaries: Right - 2 x 1.1 x 1.2 cm. Left - 3.2 x 3 x 1.7 cm. Blood flow is documented in each ovary by duplex Doppler ultrasound. Adnexa: Thin-walled tubular structure in right adnexa may represent the right ureter. No concerning masses.. Free pelvic fluid: None. Bladder: Not evaluated IMPRESSION: 1. Normal uterus and ovaries. 2. Tubular structure in right adnexa may represent the right ureter. In review the CT scan, there is some enhancement of the right ureter and query a urinary tract infection. Please correlate with urinalysis. No concerning masses are seen. Report Dictated By: Grey Britton MD at 01/21/2019 6:37 PM Report E-Signed By: Grey Britton MD at 01/21/2019 6:[address] ABDOMEN PELVIS W/ CON HISTORY: RLQ abdominal pain TECHNIQUE: Following administration of IV contrast contiguous axial images acquired through the abdomen/pelvis. Coronal and sagittal reformatting also performed.Dose Lowering Technique One of the following dose optimization techniques was utilized in the performance of this exam: Automated exposure control; adjustment of the mA and/or kV according to the patient's size; or use of an iterative reconstruction technique. Specific details can be referenced in the facility's radiology CT exam operational policy. CONTRAST: 75 mL Isovue-370 COMPARISON: CTA chest the very first 2016 FINDINGS: Visualized lung bases: Negative. Hepatobiliary: Negative. Spleen: Accessory splenule Adrenals: Negative. Pancreas: Negative. Kidneys ureters or bladder: Negative Genitalia: There is a dilated tubular structure in the right-sided the pelvis just superior to the uterus which may represent a dilated fallopian tube GI: The appendix does not appear dilated there is no evidence of bowel obstruction or bowel wall thickening Vessels/spaces/nodes: Negative. Bones/soft tissues: There is a tiny umbilical hernia containing fat Additional findings: None pertinent. IMPRESSION: There is no evidence of urolithiasis, hydronephrosis or hydroureter The appendix does not appear dilated There is a dilated tubular structure in the right-sided the pelvis just superior to the uterus which may represent a dilated fallopian tube. If this is of clinical concern pelvic ultrasound may be helpful Report Dictated By: Harriet Phillips MD at 01/21/2019 4:24 PM Report E-Signed By: Harriet Phillips MD at 01/21/2019 4:30 PM ED Course/Re-evaluation ED Course Patient was admitted when examined, history and physical were obtained. Differential diagnoses were considered. On examination lungs are clear, heart is regular, abdomen is soft and tender in the right lower quadrant. A CBC, CMP, urinalysis, CT scan of the abdomen and pelvis were done. Patient had a elevated white count of 13,000 with left shift. Patient had obvious urinary tract infection with large leukocyte esterase, moderate blood and 450 white blood cells per high-power field. A CT scan was done which showed a tubular structure in the right lower pelvis just above the uterus. They recommended better evaluation through an ultrasound. A transvaginal ultrasound was done which showed that the tubular structure was actually the ureter caused by her urinary tract infection. I discussed findings with patient. We did give her a gram of Rocephin IV. We'll go ahead and discharge patient home at this time. We'll treat her with Bactrim. She is to follow-up with her primary care providers week. She is return to emergency room if condition worsens. Decision to Disposition Date: Jan 21, 2019 Decision to Disposition Time: 19:12 Depart Departure Latest Vital Signs Vital Signs Date Time Temp Pulse Resp B/P (MAP) Pulse Ox O2 Delivery O2 Flow Rate FiO2 01/21/19 18:37 64 18 118/74 (89) 96 Room Air 01/21/19 15:21 99.3 Core Temperature (Celsius): 35.89 Impression: Primary Impression: UTI (urinary tract infection) Condition: Improved Disposition: HOME OR SELF-CARE Referrals: LIVE MURPHY MD (PCP) New Scripts Sulfamethoxazole/Trimet 800-160 Mg Tab (BACTRIM DS TABLET) 1 Each Tablet 1 TAB PO Q12H, #14 TAB Prov: MINNIE GÓMEZ 01/21/19 Hydrocodone Bit/Acetaminophen (HYDROCODON-ACETAMINOPHEN 5-325) 1 Each Tablet 1 EACH PO Q4-6H PRN for PAIN, #8 TAB Prov: MINNIE GÓMEZ 01/21/19 Patient Instructions: Urinary Tract Infection in Women (ED) Additional Instructions: Increase fluid intake. Get plenty of rest. Follow up with your primary care provider in the next 2-3 days. Take the antibiotics as directed. Return to the ER if condition worsens. Problem Qualifiers Primary Impression: UTI (urinary tract infection) Urinary tract infection type: acute cystitis Hematuria presence: with hematuria Qualified Codes: N30.01 - Acute cystitis with hematuria MINNIE GÓMEZ Jan 21, 2019 15:33
[2019-01-21] MEDS ORDERED: MORPHINE 2 MG/ML SYR IVP ONE ×2 (15:40→17:05)
[2019-01-21 15:50] LABS: PLATELET COUNT, AUTOMATED 277 K/uL (150-450)
[2019-01-21] MEDS ORDERED: IOPAMIDOL 76% 100 ML INFUS BTL 100 ML ONE (15:54)
--- NOTE | 2019-01-21 16:37 | RADIOLOGY IMAGING REPORT ---
FACILITY: [facility] PATIENT NAME: Marika Javed : 1995 MR: [id number] V: [id number] EXAM DATE: ORDERING PHYSICIAN: MINNIE GÓMEZ TECHNOLOGIST: [facility] Patient: Marika Javed : 1995 Visit/Account:[id number] Date of Sevice: 01/21/2019 CT ABDOMEN PELVIS W/ CON HISTORY: RLQ abdominal pain TECHNIQUE: Following administration of IV contrast contiguous axial images acquired through the abdom en/pelvis. Coronal and sagittal reformatting also performed.Dose Lowering Technique One of the following dose optimization techniques was utilized in the performance of this exam: Autom ated exposure control; adjustment of the mA and/or kV according to the patient's size; or use of an i terative reconstruction technique. Specific details can be referenced in the facility's radiology C T exam operational policy. CONTRAST: 75 mL Isovue-370 COMPARISON: CTA chest the very first 2016 FINDINGS: Visualized lung bases: Negative. Hepatobiliary: Negative. Spleen: Accessory splenule Adrenals: Negative. Pancreas: Negative. Kidneys ureters or bladder: Negative Genitalia: There is a dilated tubular structure in the right-sided the pelvis just superior to the u terus which may represent a dilated fallopian tube GI: The appendix does not appear dilated there is no evidence of bowel obstruction or bowel wall thi ckening Vessels/spaces/nodes: Negative. Bones/soft tissues: There is a tiny umbilical hernia containing fat Additional findings: None pertinent. IMPRESSION: There is no evidence of urolithiasis, hydronephrosis or hydroureter The appendix does not appear dilated There is a dilated tubular structure in the right-sided the pelvis just superior to the uterus which may represent a dilated fallopian tube. If this is of clinical concern pelvic ultrasound may be help ful Report Dictated By: Harriet Phillips MD at 01/21/2019 4:24 PM Report E-Signed By: Harriet Phillips MD at 01/21/2019 4:30 PM WSN:[email or web address]
[2019-01-21 18:37] VITALS: BP 118/74
--- NOTE | 2019-01-21 18:51 | RADIOLOGY IMAGING REPORT ---
[place] [facility] [place] Marika Javed : 1995 MR: [id number] V: [id number] EXAM DATE: ORDERING PHYSICIAN: MINNIE GÓMEZ TECHNOLOGIST: Location: [facility] [place] Patient: Marika Javed : 1995 Visit/Account:[id number] Date of Sevice: 01/21/2019 TRANSVAGINAL NON-OB HISTORY: Right lower quadrant pain, abnormal CT scan with a cystic tubular structure TECHNIQUE: Transvaginal ultrasound pelvis. Brannon scale, color and Duplex imaging was performed. COMPARISON: CT scan same day FINDINGS: Uterus: Anteverted; 6.4 cm length x 2.8 cm AP x 4.8 cm transverse. Myometrium: Unremarkable. Endometrium: Unremarkable; double thickness 4 mm. Cervix: Grossly negative. Ovaries: Right - 2 x 1.1 x 1.2 cm. Left - 3.2 x 3 x 1.7 cm. Blood flow is documented in each ovary by duplex Doppler ultrasound. Adnexa: Thin-walled tubular structure in right adnexa may represent the right ureter. No concerning m asses.. Free pelvic fluid: None. Bladder: Not evaluated IMPRESSION: 1. Normal uterus and ovaries. 2. Tubular structure in right adnexa may represent the right ureter. In review the CT scan, there is some enhancement of the right ureter and query a urinary tract infection. Please correlate with urina lysis. No concerning masses are seen. Report Dictated By: Grey Britton MD at 01/21/2019 6:37 PM Report E-Signed By: Grey Britton MD at 01/21/2019 6:44 PM WSN:[email or web address]
[2019-01-21] MEDS ORDERED: cefTRIAXone 1 GM VIAL IVP ONE (19:15)
[2019-01-21] MEDS ORDERED: SULF-198 PO (19:15)
[2019-01-21] MEDS ORDERED: HYDR-385 PO (19:15)
[2019-01-21] MEDS ORDERED: APAP/HYDROCODONE 325/5 TAB PO ONE (19:15)
== END 2019-01-21 19:29 | disposition home or self-care (01) ==
LOC: ER 15:54
DX: N30.01 Acute cystitis with hematuria (principal)
CPT/HCPCS: 74177; 76830; 81001; 82150; 83690; 84703; 85025; 87077; 87088; 87186; 96361; 96374; 96375; 96376; 99284; J0696; J2270; J2405; J7030; Q9967; 82040; 82247; 82310; 82374; 82435; 82565; 82947; 84075; 84132; 84155; 84295; 84450; 84460; 84520

== ENCOUNTER → 2019-01-31 | Outpatient (CLI) | payer SELFPAY ==
[2016-08-23 10:56] VITALS: BMI 42.4
[~2019-01-31] MED LIST changes: +HYDR-385 PO; +SULF-198 PO
--- NOTE | 2019-01-31 11:10 | RADIOLOGY IMAGING REPORT ---
FACILITY: [facility] - [place] PATIENT NAME: Marika Javed : 1995 MR: [id number] V: [id number] EXAM DATE: ORDERING PHYSICIAN: AISHA ORDONEZ TECHNOLOGIST: Location: [facility] [place] Patient: Marika Javed : 1995 Visit/Account:[id number] Date of Sevice: 01/31/2019 ANKLE 3 VIEW MIN LEFT, FOOT 3 VIEW LEFT Indication: Pain Comparison: None Available Findings: No evidence of fracture, dislocation, or acute osseous abnormality of the left ankle and foot. The ankle mortise is symmetric. There is no significant ankle joint effusion. There is stable soft tissue swelling noted around the ankle. No evidence of radiopaque foreign body. Mild enthesopathic changes noted at the plantar calcaneus. IMPRESSION: 1. No acute osseous abnormality of the left ankle and foot Report Dictated By: Ross Rice at 01/31/2019 10:57 AM Report E-Signed By: Ross Rice at 01/31/2019 11:02 AM WSN:[email or web address]
--- NOTE | 2019-01-31 11:10 | RADIOLOGY IMAGING REPORT ---
[place]AC[place] [facility] [place] NAME: Marika Javed : 1995 MR: [id number] V: [id number] EXAM DATE: ORDERING PHYSICIAN: AISHA ORDONEZ TECHNOLOGIST: Location: [facility] [place] Patient: aMrika Javed : 1995 Visit/Account:[id number] Date of Sevice: 01/31/2019 ANKLE 3 VIEW MIN LEFT, FOOT 3 VIEW LEFT Indication: Pain Comparison: None Available Findings: No evidence of fracture, dislocation, or acute osseous abnormality of the left ankle and foot. The ankle mortise is symmetric. There is no significant ankle joint effusion. There is stable soft tissue swelling noted around the ankle. No evidence of radiopaque foreign body. Mild enthesopathic changes noted at the plantar calcaneus. IMPRESSION: 1. No acute osseous abnormality of the left ankle and foot Report Dictated By: Ross Rice at 01/31/2019 10:57 AM Report E-Signed By: Ross Rice at 01/31/2019 11:02 AM WSN:[id number]
== END ==
LOC: RAD 10:04
PROVIDERS: ATTEND Nurse Practitioner
DX: M79.672 Pain in left foot (principal)